=== PATIENT | male | born 1955 | race Caucasian/White ===

== ENCOUNTER → 2021-01-15 | Emergency (ER) | payer MEDICARE ==
[~2021-01-15] VITALS: Ht 180.3 cm; Wt 104.5 kg
[~2021-01-15] MED LIST: ALBU8HFA IH; BUPR75 PO; DOCU-350 PO; DULO60CA98 PO; FLUC100T PO; FURO80 PO; HYDR-4072 PO; IBUP-2071 PO; LOSA50TA37 PO; MAAL30 PO; METF-960 PO; NYST30CR9 TP; ONDA-104 PO; OXYB5TAB20 PO; ROPI2TAB26 PO; ROSU20TA73 PO; SENN1TAB86 PO; SERT-162 PO; SUMA100T PO; TAMS-13 PO; TOPI25 PO
[2021-01-15 23:11] LABS: BASOPHILS % (AUTO) 0.1 % (0.0-2.0); EOSINOPHILS % (AUTO) 0.1 % (1.0-6.0); HEMATOCRIT 29.6 % (41-53); HEMOGLOBIN 9.3 g/dL (13.5-17.5); LYMPHOCYTES # (AUTO) 0.4 K/uL (1.0-4.8); LYMPHOCYTES % (AUTO) 6.5 % (22.0-44.0); MEAN CORPUSCULAR HEMOGLOBIN 33.8 pg (26.0-34.0); MEAN CORPUSCULAR HGB CONC 31.3 G/dL (31.0-37.0); MEAN CORPUSCULAR VOLUME 108 fL (80-100); MONOCYTES # (AUTO) 0.2 K/uL (0.1-1.0); MONOCYTES % (AUTO) 3.1 % (2.0-9.0); NEUTROPHILS # (AUTO) 5.3 K/uL (1.8-7.7); PLATELET COUNT (AUTO) 169 K/uL (150-450); RED BLOOD CELL COUNT(AUTO) 2.74 MIL/uL (4.50-5.90); RED CELL DISTRIBUTION WIDTH 18.6 % (11.5-14.5)
[2021-01-15 23:12] LABS: NEUTROPHILS % (AUTO) 90.2 % (40.0-70.0)
[2021-01-15 23:14] LABS: ANION GAP 13 mmol/L (8-16); CALCIUM, TOTAL 8.3 mg/dL (8.8-10.5); CARBON DIOXIDE 22 mmol/L (22-29); CHLORIDE 107 mmol/L (98-107); CREATININE 0.61 mg/dL (0.60-1.30); GLOMERULAR FILTR. RATE CALC > 60 mL/min (>60); GLUCOSE,RANDOM 106 mg/dL (70-110); POTASSIUM 4.2 mmol/L (3.5-5.1); SODIUM SERUM 142 mmol/L (136-145); UREA NITROGEN, BLOOD 16 mg/dL (7-18)
[2021-01-15 23:27] LABS: ALANINE AMINOTRANSFERASE 19 U/L (12-78); ALBUMIN 1.5 g/dL (3.4-5.0); ALKALINE PHOSPHATASE 118 U/L (46-116); ASPARTATE AMINOTRANSFERASE 31 U/L (15-37); BILIRUBIN,TOTAL 0.5 mg/dL (0.1-1.0); CREATINE KINASE, TOTAL ONLY 39 U/L (39-308); TOTAL PROTEIN, SERUM 5.7 g/dL (6.4-8.2)
[2021-01-15 23:32] LABS: B-TYPE NATRIURETIC PEPTIDE 72 pg/mL (0-100)
[2021-01-16 02:58] VITALS: BP 119/58
== END | disposition home or self-care (01) ==
LOC: EMS 21:40
DX: G71.00 Muscular dystrophy, unspecified (principal); F41.9 Anxiety disorder, unspecified; I50.9 Heart failure, unspecified; G89.29 Other chronic pain; Z90.89 Acquired absence of other organs; Z79.84 Long term (current) use of oral hypoglycemic drugs
CPT/HCPCS: 71045; 80053; 82550; 83880; 84484; 85025; 93005; 99285; 36415-L1; 36415-TC